=== PATIENT | female | born 1975 | race American Indian/Alaskan Native ===

== ENCOUNTER 2019-11-25 13:12 | Outpatient (CLI) | payer OTHER ==
--- NOTE | 2019-11-25 14:05 | XRay Report ---
RIGHT HIP 2 VIEWS INDICATION / CLINICAL INFORMATION: RIGHT HIP PAIN COMPARISON: None available. FINDINGS: BONES and JOINT(S): No acute fracture or subluxation. No significant arthritis. SOFT TISSUES: No significant abnormality. ADDITIONAL FINDINGS: None. IMPRESSION: 1. No acute findings. Signer Name: Felice Coker MD Signed: 11/25/2019 2:01 PM Workstation Name: [id number]
== END 2019-11-25 13:13 | disposition home or self-care (01) ==
LOC: XRAY 13:12
PROVIDERS: ATTEND Internal Medicine
DX: M25.551 Pain in right hip (principal)

== ENCOUNTER 2019-12-04 17:33 | Emergency (ER) | payer SELFPAY ==
[2019-12-04 18:06] VITALS: BP 145/74
[2019-12-04 21:01] LABS: Bacteria,Urine 1+ /HPF (Negative); Bilirubin,Urine NEG (Negative); Blood,Urine NEG (Negative); Color,Urine Yellow (Yellow); Mucus,Urine 1+ /HPF; Protein,Urine <15 mg/dL mg/dL (Negative)
[2019-12-04] MEDS ORDERED: predniSONE 20 MG TAB PO ONE (22:26)
[2019-12-04] MEDS ORDERED: KETOROLAC 30 MG/1 ML INJ IM ONE (22:26)
--- NOTE | 2019-12-04 22:53 | Emergency Department Report ---
ED General Adult HPI - General Chief complaint: Skin Rash Stated complaint: PAIN/SCARS ON (R) LEG Source: patient Mode of arrival: Ambulatory Limitations: No Limitations - History of Present Illness Initial comments: Patient is a 44-year-old -[place] female with a history of hypertension and chronic low back pain with sciatica who presents to the ED with acute exacerbation of her chronic low back pain that radiates to the right leg for the last 2 weeks, worse in the last 2 days. Patient states that she has been taking [id number] pain medications ibuprofen with no relief. Patient states that she resorted to application of ice packs on her right thigh for pain control but in the last 2 days dissection where she put ice started bruising and now has multiple bruises with localized pain. Patient states that her pain is worse with ambulation or palpation. Patient denies fall, traumatic injury, headache, dizziness, syncope, chest pain, shortness of breath, abdominal pain, dysuria, urinary frequency and urgency, numbness and tingling or weakness of lower extremities bilaterally, fever and chills. MD Complaint: Bruising on right thigh; Low back pain that radiates to the right leg -: Sudden, week(s) (1) Location: back (lower), lower extremity (right thigh) Radiation: extremity (right leg) Quality: aching, sharp Consistency: constant Improves with: none Worsens with: movement Associated Symptoms: denies other symptoms, rash (bruising of right thigh). denies: confusion, chest pain, cough, diaphoresis, fever/chills, headaches, loss of appetite, malaise, shortness of breath, syncope, weakness Treatments Prior to Arrival: none - Related Data Home Medications Medication Instructions Recorded Confirmed Last Taken Buspirone HCl [busPIRone] 10 mg PO BID 04/04/16 04/13/16 04/12/16 18:00 Ferrous Sulfate [Feosol] 325 mg PO TID 04/04/16 04/13/16 04/10/16 09:00 HYDROcodone/ACETAMINOPHEN [Xodol 1 tab PO Q6H PRN 04/04/16 04/13/16 04/06/16 09:00 7.5-300 mg TAB] amLODIPine [Norvasc] 5 mg PO DAILY 04/04/16 04/13/16 04/12/16 18:00 hydroCHLOROthiazide [Hctz] 12.5 mg PO QDAY 04/04/16 04/13/16 04/12/16 18:00 Previous Rx's Medication Instructions Recorded Last Taken Type Ibuprofen [Motrin 600 MG tab] 600 mg PO Q8H PRN #30 tablet 04/13/16 Unknown Rx Multivitamin with Iron 1 each PO DAILY #30 tablet 04/13/16 Unknown Rx [Multivitamins with Iron] oxyCODONE /ACETAMINOPHEN [Percocet 1 tab PO Q6HR PRN #30 tablet 04/13/16 Unknown Rx 5/325] Ciprofloxacin HCl [Ciprofloxacin 500 mg PO Q12HR #28 tab 04/18/16 Unknown Rx TAB] Docusate Sodium [Colace] 100 mg PO BID PRN #20 capsule 04/18/16 Unknown Rx Ibuprofen [Motrin 800 MG tab] 800 mg PO Q8HR PRN #30 12/04/19 Unknown Rx methOCARBAMOL [Robaxin TAB] 750 mg PO Q12H PRN #30 tab 12/04/19 Unknown Rx predniSONE [Deltasone] 60 mg PO QDAY #15 tab 12/04/19 Unknown Rx Allergies Allergy/AdvReac Type Severity Reaction Status Date / Time acetaminophen Allergy Unknown Verified 12/04/19 18:03 [From Tylenol-Codeine #3] aspirin Allergy Itching Verified 04/04/16 15:40 codeine Allergy Unknown Verified 12/04/19 18:03 [From Tylenol-Codeine #3] nickel Allergy itching, Verified 04/04/16 15:40 rash red dye Allergy itching, Verified 04/04/16 15:40 rash ED Review of Systems ROS: Stated complaint: PAIN/SCARS ON (R) LEG Other details as noted in HPI Constitutional: denies: chills, fever Eyes: denies: eye pain, eye discharge, vision change ENT: denies: ear pain, throat pain Respiratory: denies: cough, shortness of breath, wheezing Cardiovascular: denies: chest pain, palpitations Endocrine: no symptoms reported Gastrointestinal: denies: abdominal pain, nausea, diarrhea Genitourinary: denies: urgency, dysuria, discharge Musculoskeletal: back pain (lower), arthralgia (right lower leg and thigh), myalgia. denies: joint swelling Skin: change in color (Mild bruising on the right thigh posteriorly). denies: rash, lesions Neurological: denies: headache, weakness, paresthesias Psychiatric: denies: anxiety, depression Hematological/Lymphatic: denies: easy bleeding, easy bruising ED Past Medical Hx - Past Medical History Hx Hypertension: Yes (x 1 year, denies chest pain or SOB) Hx Renal Disease: No Hx Sickle Cell Disease: No Hx Asthma: No Hx HIV: No Additional medical history: Chronic low back pain with sciatica - Surgical History Additional Surgical History: Ovary - Social History Smoking Status: Never Smoker - Medications Home Medications: Home Medications Medication Instructions Recorded Confirmed Last Taken Type Buspirone HCl [busPIRone] 10 mg PO BID 04/04/16 04/13/16 04/12/16 18:00 History Ferrous Sulfate [Feosol] 325 mg PO TID 04/04/16 04/13/16 04/10/16 09:00 History HYDROcodone/ACETAMINOPHEN [Xodol 1 tab PO Q6H PRN 04/04/16 04/13/16 04/06/16 09:00 History 7.5-300 mg TAB] amLODIPine [Norvasc] 5 mg PO DAILY 04/04/16 04/13/16 04/12/16 18:00 History hydroCHLOROthiazide [Hctz] 12.5 mg PO QDAY 04/04/16 04/13/16 04/12/16 18:00 History Ibuprofen [Motrin 600 MG tab] 600 mg PO Q8H PRN #30 tablet 04/13/16 Unknown Rx Multivitamin with Iron 1 each PO DAILY #30 tablet 04/13/16 Unknown Rx [Multivitamins with Iron] oxyCODONE /ACETAMINOPHEN [Percocet 1 tab PO Q6HR PRN #30 tablet 04/13/16 Unknown Rx 5/325] Ciprofloxacin HCl [Ciprofloxacin 500 mg PO Q12HR #28 tab 04/18/16 Unknown Rx TAB] Docusate Sodium [Colace] 100 mg PO BID PRN #20 capsule 04/18/16 Unknown Rx Ibuprofen [Motrin 800 MG tab] 800 mg PO Q8HR PRN #30 12/04/19 Unknown Rx methOCARBAMOL [Robaxin TAB] 750 mg PO Q12H PRN #30 tab 12/04/19 Unknown Rx predniSONE [Deltasone] 60 mg PO QDAY #15 tab 12/04/19 Unknown Rx ED Physical Exam - General Limitations: No Limitations General appearance: alert, in no apparent distress - Head Head exam: Present: atraumatic, normocephalic, normal inspection - Eye Eye exam: Present: normal appearance, PERRL, EOMI Pupils: Present: normal accommodation - ENT ENT exam: Present: normal exam, normal orophraynx, mucous membranes moist, TM's normal bilaterally, normal external ear exam - Neck Neck exam: Present: normal inspection, full ROM - Respiratory Respiratory exam: Present: normal lung sounds bilaterally. Absent: respiratory distress, wheezes, rales, rhonchi, chest wall tenderness, accessory muscle use, decreased breath sounds - Cardiovascular Cardiovascular Exam: Present: regular rate, normal rhythm, normal heart sounds. Absent: systolic murmur, diastolic murmur, rubs, gallop - GI/Abdominal GI/Abdominal exam: Present: soft, normal bowel sounds. Absent: tenderness, guarding, rebound, hyperactive bowel sounds, hypoactive bowel sounds, mass - Extremities Exam Extremities exam: Present: normal inspection, full ROM, tenderness (Palpable mild right thigh tenderness due to multiple skin bruises from application of ice causing frostbite), normal capillary refill. Absent: calf tenderness - Back Exam Back exam: Present: normal inspection, full ROM, tenderness (Palpable lumbosacral paraspinal musculoskeletal tenderness), muscle spasm, paraspinal tenderness. Absent: CVA tenderness (R), CVA tenderness (L), vertebral tenderness - Neurological Exam Neurological exam: Present: alert, oriented X3, CN II-XII intact, normal gait, reflexes normal - Psychiatric Psychiatric exam: Present: normal affect, normal mood - Skin Skin exam: Present: warm, dry, intact, normal color. Absent: rash ED Course Vital Signs 12/04/19 18:05 Temperature 98.4 F Pulse Rate 75 Respiratory 19 Rate Blood Pressure 145/74 O2 Sat by Pulse 98 Oximetry ED Medical Decision Making - Medical Decision Making This is a 44-year-old -[place] female with a history of hypertension and chronic low back pain with sciatica who presents to the ED with acute exacerbation of her chronic low back pain that radiates to the right leg for the last 2 weeks, worse in the last 2 days. Patient states that she has been taking [id number] pain medications ibuprofen with no relief. Patient states that she resorted to application of ice packs on her right thigh for pain control but in the last 2 days dissection where she put ice started bruising and now has multiple bruises with localized pain. Patient states that her pain is worse with ambulation or palpation. In the ED, patient is alert and oriented x3 and is not in distress. Patient was treated for pain in the ED. On reevaluation, patient's pain is well controlled medications. Patient will discharge home on pain medications and muscle relaxants and was advised to follow-up with her primary care physician in 5 to 7 days for reevaluation. Patient advised return to the ED immediately if symptoms get worse. - Differential Diagnosis Lumbar radiculopathy; muscle spasm; muscle strain; chronic osteoarthritis Critical care attestation.: If time is entered above; I have spent that time in minutes in the direct care of this critically ill patient, excluding procedure time. ED Disposition Clinical Impression: Spasm of muscle of lower back, Chronic pain syndrome Chronic low back pain with right-sided sciatica Qualifiers: Back pain laterality: bilateral Qualified Code(s): M54.41 - Lumbago with sciatica, right side; G89.29 - Other chronic pain Disposition: DC- TO HOME OR SELFCARE Is pt being admited?: No Does the pt Need Aspirin: No Condition: Stable Instructions: Arthralgia (ED), Lumbar Radiculopathy (ED), Muscle Spasm (ED), Osteoarthritis (ED) Additional Instructions: Take medication with food, drink plenty fluids and follow-up with your primary care physician in 7 to 10 days for reevaluation. Return to the ED immediately if symptoms get worse. Prescriptions: predniSONE [Deltasone] 60 mg PO QDAY #15 tab Ibuprofen [Motrin 800 MG tab] 800 mg PO Q8HR PRN #30 PRN Reason: Pain methOCARBAMOL [Robaxin TAB] 750 mg PO Q12H PRN #30 tab PRN Reason: Muscle Spasm Referrals: [facility] [Provider Group] - 7-10 days Time of Disposition: 22:55 Print Language: VIET[place]
== END 2019-12-04 23:25 | disposition home or self-care (01) ==
LOC: ED 17:33
DX: M62.830 Muscle spasm of back (principal); M54.41 Lumbago with sciatica, right side; I10 Essential (primary) hypertension; F17.200 Nicotine dependence, unspecified, uncomplicated; G89.29 Other chronic pain; Z79.899 Other long term (current) drug therapy; Z88.6 Allergy status to analgesic agent; Z88.4 Allergy status to anesthetic agent; Z88.8 Allergy status to other drugs, medicaments and biological substances
CPT/HCPCS: 81001; 96372; 99283; J1885; J7512